=== PATIENT | male | born 2000 | race African-American/Black ===

== ENCOUNTER 2021-05-11 05:03 | Emergency (ER) | payer OTHER ==
[2021-05-11 05:32] LABS: BASOPHIL 0.8 % (0-2); HCT 46.8 % (42.0-52.0); HGB 15.8 g/dl (13.2-18.0); LYMPHOCYTE 53.8 % (15-48); MCH 29.2 pg (25.0-31.0); MCHC 33.8 g/dL (32.0-36.0); MCV 86.3 fL (78.0-100.0); MONOCYTE 9.4 % (0-12); NEUTROPHIL 33.8 % (41-80); NRBC 0; PLT 272 K/uL (150-400); RBC 5.42 M/uL (4.70-6.00); RDW 12.8 % (11.5-14.0); WBC 9.6 K/uL (4.0-10.5)
[2021-05-11 05:48] LABS: ALBUMIN 3.6 g/dL (3.4-5.0); BILIRUBIN - TOTAL 0.4 mg/dL (0.2-1.0); BUN/CREAT RATIO (CALC) 12.2 RATIO; C-REACTIVE PROTEIN 2.9 mg/dL (<=0.90); CREATININE 0.74 mg/dL (0.67-1.17); GLOBULIN (CALCULATION) 4.6 g/dL; MAGNESIUM 2.1 mg/dL (1.8-2.4); POTASSIUM 3.8 mmol/L (3.5-5.1); TOTAL PROTEIN 8.2 g/dL (6.4-8.2)
[2021-05-11 05:54] LABS: LACTIC ACID 1.8 mmol/L (0.4-1.9)
[2021-05-11] MEDS ORDERED: PULMICORT0.5 MG/2 M NEB (07:06)
[2021-05-11] MEDS ORDERED: MEDROL 4MG DOSEP4 MG PO (07:06)
[2021-05-11] MEDS ORDERED: NEBULIZER UNIT NEB (07:06)
[2021-05-11] MEDS ORDERED: TESSALON PERLE100 MG PO (07:06)
[2021-05-11] MEDS ORDERED: DUONEB 2.5-0.5M1 AMP INH (07:06)
[2021-05-11 07:24] LABS: INFLUENZA A NAA NEGATIVE (NEGATIVE)
[2021-05-11 07:40] LABS: CORONAVIRUS 2019 SARS-COV-2 POSITIVE (NEGATIVE)
== END 2021-05-11 07:49 | disposition home or self-care (01) ==
LOC: FER 05:03
PROVIDERS: Emergency Medicine Emergency Medical Services
DX: U07.1 COVID-19 (principal); J45.901 Unspecified asthma with (acute) exacerbation
CPT/HCPCS: 36415; 71045; 80053; 83605; 83690; 83735; 84145; 84484; 85025; 85379; 86140; 93005; 94640; 94664; J2930; J7120; U0002

== ENCOUNTER 2021-05-14 17:29 | Emergency (ER) | payer OTHER ==
[~2021-05-14 17:29] MED LIST: DUONEB 2.5-0.5M1 AMP INH; MEDROL 4MG DOSEP4 MG PO; NEBULIZER UNIT NEB; PULMICORT0.5 MG/2 M NEB; TESSALON PERLE100 MG PO
[2021-05-14 19:59] LABS: EOSINOPHIL 2.6 % (0-5); HCT 46.4 % (42.0-52.0); HGB 15.3 g/dl (13.2-18.0); MCH 28.9 pg (25.0-31.0); MCV 87.5 fL (78.0-100.0); MONOCYTE 10.6 % (0-12); MPV 9.5 fL (6.0-9.5); NEUTROPHIL 26.5 % (41-80); NRBC 0; PLT 393 K/uL (150-400); RDW 12.8 % (11.5-14.0); WBC 7.3 K/uL (4.0-10.5)
[2021-05-14 20:02] LABS: LYMPHOCYTE 58.8 % (15-48)
[2021-05-14 20:14] LABS: BUN/CREAT RATIO (CALC) 21.1 RATIO; CREATININE 0.71 mg/dL (0.67-1.17)
== END 2021-05-14 21:23 | disposition home or self-care (01) ==
LOC: FER 17:29
PROVIDERS: Nurse Practitioner Family
DX: U07.1 COVID-19 (principal); J45.909 Unspecified asthma, uncomplicated
CPT/HCPCS: 36415; 71045; 80048; 85025

== ENCOUNTER 2021-07-17 17:40 | Emergency (ER) | payer OTHER ==
[2021-07-17 20:43] LABS: INFLUENZA A NAA NEGATIVE (NEGATIVE)
[2021-07-17 20:45] LABS: AMPHETAMINES NEGATIVE (NEGATIVE); BARBITURATES NEGATIVE (NEGATIVE); ECSTASY (MDMA) NEGATIVE (NEGATIVE); MARIJUANA (THC) POSITIVE (NEGATIVE); METHADONE NEGATIVE (NEGATIVE); OPIATES NEGATIVE (NEGATIVE); OXYCODONE NEGATIVE (NEGATIVE)
[2021-07-17 20:49] LABS: CORONAVIRUS 2019 SARS-COV-2 POSITIVE (NEGATIVE)
== END 2021-07-17 20:20 | disposition home or self-care (01) ==
LOC: FER 17:40
PROVIDERS: Physician Assistant
DX: U07.1 COVID-19 (principal); F12.10 Cannabis abuse, uncomplicated; J45.909 Unspecified asthma, uncomplicated
CPT/HCPCS: 80305; 99283; U0002